=== PATIENT | male | born 1955 | race Caucasian/White ===

== ENCOUNTER 2025-05-06 14:43 | Emergency (ER) | payer OTHER ==
[2025-05-06] MEDS ORDERED: Ketorolac Tromethamine 30 MG (1 mL) VIAL ONE (16:54)
== END 2025-05-06 18:19 | disposition short-term general hospital (02) ==
LOC: EDBD 14:43 → EEVIPCON 14:43 → NAV ERS 14:43
DX: M54.16 Radiculopathy, lumbar region (principal); R53.1 Weakness; I25.10 Atherosclerotic heart disease of native coronary artery without angina pectoris; I11.0 Hypertensive heart disease with heart failure; I50.9 Heart failure, unspecified; E11.9 Type 2 diabetes mellitus without complications; J44.9 Chronic obstructive pulmonary disease, unspecified
CPT/HCPCS: 96372; 99284; J1885